=== PATIENT | male | born 1960 | race Caucasian/White ===

== ENCOUNTER 2017-07-28 09:25 | Day surgery (SDC) | payer OTHER ==
[2017-07-28] MEDS ORDERED: PROPOFOL 60 ML (11:00)
[2017-07-28] MEDS ORDERED: LIDOCAINE 2% (SDV) 5 ML INJ (11:00)
== END 2017-07-28 14:22 | disposition home or self-care (01) ==
LOC: GIL 09:25
DX: Z12.11 Encounter for screening for malignant neoplasm of colon (principal); K64.8 Other hemorrhoids; I10 Essential (primary) hypertension; E03.9 Hypothyroidism, unspecified
CPT/HCPCS: 45378